=== PATIENT | female | born 1975 | race Hispanic/Latino ===

== ENCOUNTER 2021-07-27 09:10 | Emergency (ER) | payer OTHER, SELFPAY ==
[~2021-07-27] VITALS: Ht 157.5 cm; Wt 61.1 kg
[2021-07-27 09:11] VITALS: BP 153/78
[2021-07-27] MEDS ORDERED: PRENTAB53 PO (12:28)
[2021-07-27] MEDS ORDERED: OXYC1TAB23 PO (18:43)
[2021-07-27] MEDS ORDERED: IBUP-1022 PO (18:43)
== END 2021-07-27 09:32 | disposition left against medical advice (07) ==
LOC: M ED 09:10
DX: Z53.29 Procedure and treatment not carried out because of patient's decision for other reasons (principal)

== ENCOUNTER 2021-07-27 11:35 | Emergency (ER) | payer OTHER ==
[~2021-07-27] VITALS: Ht 157.5 cm; Wt 61.1 kg
[2021-07-27] MEDS ORDERED: PRENTAB53 PO (12:28)
[2021-07-27] MEDS ORDERED: PERCOCET 5MG/325MG TAB PO ONE ×2 (17:10→18:50)
[2021-07-27 17:39] VITALS: BP 135/75
[2021-07-27] MEDS ORDERED: KETOROLAC 30 MG/ML 1ML VIAL IV ONE (17:45)
[2021-07-27] MEDS ORDERED: NS 1,000 ML IV ONE (17:50)
[2021-07-27 17:59] LABS: BASO % 0.3 % (0.0-1.0); EOS % 0.3 % (0.0-3.0); HEMATOCRIT 40.6 % (36.0-47.0); HEMOGLOBIN 13.7 g/dl (12.0-15.5); MEAN CORPUSCULAR HEMOGLOBIN 30.6 pg (27.0-33.0); MEAN CORPUSCULAR HGB CONC 33.7 g/dl (32.0-36.5); MEAN CORPUSCULAR VOLUME 90.8 fl (80.0-96.0); MONO # 0.6 10^3/uL (0.0-0.8); NEUTROPHILS # 8.2 10^3/uL (1.5-8.5); PLATELET COUNT, AUTOMATED 260 10^3/uL (150-450); RED BLOOD COUNT 4.47 10^6/uL (4.00-5.40); WHITE BLOOD COUNT 11.8 10^3/uL (4.0-10.0)
[2021-07-27] MEDS ORDERED: IBUP-1022 PO (18:43)
[2021-07-27] MEDS ORDERED: OXYC1TAB23 PO (18:43)
== END 2021-07-27 19:32 | disposition home or self-care (01) ==
LOC: M ED 11:35
DX: O02.1 Missed abortion (principal); Z3A.09 9 weeks gestation of pregnancy
CPT/HCPCS: 76801; 76817; 84702; 85025; 86850; 86900; 86901; 93976; 96361; 96374; 99283; J1885

== ENCOUNTER 2022-08-22 17:45 | Emergency (ER) | payer OTHER ==
[~2022-08-22] VITALS: Ht 157.5 cm; Wt 58.8 kg
[~2022-08-22 17:45] MED LIST: IBUP-1022 PO; OXYC1TAB23 PO; PRENTAB53 PO
[2022-08-22 18:47] LABS: BASO % 0.3 % (0.0-1.0); EOS # 0.1 10^3/uL (0.0-0.5); EOS % 1.6 % (0.0-3.0); HEMATOCRIT 43.3 % (36.0-47.0); HEMOGLOBIN 14.2 g/dl (12.0-15.5); LYMPH # 2.3 10^3/uL (1.5-5.0); LYMPH % 35.9 % (24.0-44.0); MEAN CORPUSCULAR HEMOGLOBIN 29.8 pg (27.0-33.0); MEAN CORPUSCULAR HGB CONC 32.8 g/dl (32.0-36.5); MEAN CORPUSCULAR VOLUME 90.8 fl (80.0-96.0); MONO # 0.4 10^3/uL (0.0-0.8); MONO % 6.5 % (2.0-8.0); NEUTROPHILS # 3.5 10^3/uL (1.5-8.5); NEUTROPHILS % 55.5 % (36.0-66.0); PLATELET COUNT, AUTOMATED 283 10^3/uL (150-450); RED BLOOD COUNT 4.77 10^6/uL (4.00-5.40); WHITE BLOOD COUNT 6.3 10^3/uL (4.0-10.0)
[2022-08-22] MEDS ORDERED: NS 500 ML IV ONE (19:05)
[2022-08-22 19:09] LABS: CK-MB VALUE MASS < 1.0 NG/ML (<3.6)
[2022-08-22 19:10] LABS: MAGNESIUM LEVEL 1.7 MG/DL (1.8-2.4)
[2022-08-22 19:13] LABS: FREE T4 1.05 NG/DL (0.89-1.76)
[2022-08-22 19:14] LABS: BLOOD UREA NITROGEN 10 MG/DL (9-23); CALCIUM LEVEL 9.2 MG/DL (8.5-10.1); CARBON DIOXIDE LEVEL 24 MMOL/L (20-31); CHLORIDE LEVEL 104 MMOL/L (98-107); CPK CREATINE PHOSPHOKINASE 62 U/L (34-145); CREATININE FOR GFR 0.73 MG/DL (0.55-1.30); GLOMERULAR FILTRATION RATE > 60.0 (>58); GLUCOSE, FASTING 87 MG/DL (60-100); MB/CK RELATIVE INDEX 1.61 (< OR =4); POTASSIUM SERUM 3.8 MMOL/L (3.5-5.1); SODIUM LEVEL 139 MMOL/L (136-145); THYROID STIMULATING HORMONE 2.564 uIU/ML (0.55-4.78)
[2022-08-22] MEDS ORDERED: ISOVUE-370 76% 100ML VIAL As Ordered ONE (20:18)
[2022-08-22] MEDS ORDERED: KETOROLAC 30 MG/ML 1ML VIAL IV ONE (21:00)
[2022-08-22 21:05] LABS: CK-MB VALUE MASS < 1.0 NG/ML (<3.6)
[2022-08-22 21:07] LABS: CPK CREATINE PHOSPHOKINASE 52 U/L (34-145); MB/CK RELATIVE INDEX 1.92 (< OR =4)
[2022-08-22 21:59] VITALS: BP 151/95
== END 2022-08-22 22:06 | disposition home or self-care (01) ==
LOC: M ED 17:45
DX: R55 Syncope and collapse (principal)
CPT/HCPCS: 71045; 71275; 80048; 82550; 82553; 83735; 84439; 84443; 84484; 85025; 93005; 93041; 94760; 96361; 96374; 99285; J1885

== ENCOUNTER → 2022-08-27 | Outpatient (CLI) | payer OTHER ==
[~2022-08-27] MED LIST changes: +ISOVUE-370 76% 100ML VIAL As Ordered ONE
== END ==
LOC: M RADPRO 11:49
PROVIDERS: ATTEND Obstetrics & Gynecology
DX: N97.9 Female infertility, unspecified (principal); Z53.8 Procedure and treatment not carried out for other reasons

== ENCOUNTER 2022-11-27 10:51 | Emergency (ER) | payer OTHER ==
[~2022-11-27] VITALS: Ht 160 cm; Wt 58.2 kg
[~2022-11-27 10:51] MED LIST changes: -ISOVUE-370 76% 100ML VIAL As Ordered ONE
[2022-11-27] MEDS ORDERED: ACET-897 PO (12:52)
[2022-11-27] MEDS ORDERED: KETOROLAC 30 MG/ML 1ML VIAL IM ONE (12:55)
[2022-11-27 15:06] VITALS: BP 157/89
== END 2022-11-27 15:16 | disposition home or self-care (01) ==
LOC: M ED 10:51
DX: M25.512 Pain in left shoulder (principal)
CPT/HCPCS: 93971; 96372; 99283; J1885

== ENCOUNTER → 2023-02-22 | Outpatient (CLI) | payer OTHER ==
[~2023-02-22] MED LIST changes: +ACET-897 PO; +ISOVUE-300 61% 100ML VIAL As Ordered ONE; +LIDOCAINE 1% MDV 20ML VIAL As Ordered ONE; +PROHANCE 279.3MG/ML 5ML VIAL As Ordered ONE
== END ==
LOC: M RAD 07:15
PROVIDERS: ATTEND Physician Assistant Surgical
DX: S46.012A Strain of muscle(s) and tendon(s) of the rotator cuff of left shoulder, initial encounter (principal); M19.012 Primary osteoarthritis, left shoulder
CPT/HCPCS: 23350; 73223; 77002; A9576; Q9967